=== PATIENT | female | born 1955 | race Caucasian/White ===

== ENCOUNTER 2018-05-30 10:33 | Emergency (ER) | payer OTHER ==
[~2018-05-30] VITALS: Ht 170.2 cm; Wt 60.8 kg
[2018-05-30 10:38] VITALS: BP 120/71
[2018-05-30 11:30] LABS: BASOPHILS % (AUTO) 0.5 % (0.0-2.0); EOSINOPHILS # (AUTO) 0.1 K/uL (0-0.4); EOSINOPHILS % (AUTO) 2.8 % (0.0-4.0); HEMATOCRIT 37.2 % (36-48); HEMOGLOBIN 12.3 g/dL (12.0-16.0); LYMPHOCYTES # (AUTO) 1.8 K/uL (2.5-16.5); LYMPHOCYTES % (AUTO) 38.8 % (20.5-51.1); MEAN CORPUSCULAR HEMOGLOBIN 32 pg (27-31); MEAN CORPUSCULAR HGB CONC 33 g/dL (33-37); MEAN CORPUSCULAR VOLUME 95.8 fL (80-94); MONOCYTES # (AUTO) 0.3 K/uL (0.8-1.0); MONOCYTES % (AUTO) 7.3 % (1.7-9.3); NEUTROPHILS # (AUTO) 2.3 K/uL (1.8-7.7); NEUTROPHILS % (AUTO) 50.6 % (42.2-75.2); PLATELET COUNT (AUTO) 211 K/uL (140-450); RED BLOOD CELL COUNT(AUTO) 3.88 MIL/uL (4.20-5.40); RED CELL DISTRIBUTION WIDTH 12.5 % (11.6-13.7); WHITE BLOOD COUNT (AUTO) 4.5 K/uL (4.8-10.8)
[2018-05-30 11:37] LABS: ANION GAP 9.2 (8-16); CARBON DIOXIDE 32.1 mmol/L (21-32); POTASSIUM 4.3 mmol/L (3.5-5.1)
[2018-05-30 11:45] LABS: ALBUMIN 3.7 g/dL (3.4-5.0); TOTAL BILIRUBIN 0.4 mg/dL (0.0-1.0)
[2018-05-30 12:15] VITALS: BP 119/80
== END 2018-05-30 12:15 | disposition home or self-care (01) ==
LOC: MED 10:33
DX: R07.9 Chest pain, unspecified (principal); A69.20 Lyme disease, unspecified; Z88.8 Allergy status to other drugs, medicaments and biological substances
CPT/HCPCS: 36415; 80053; 84484; 85025; 93005; 99284

== ENCOUNTER 2019-05-23 17:58 | Emergency (ER) | payer SELFPAY ==
[~2019-05-23] VITALS: Ht 167.6 cm; Wt 59.0 kg
--- NOTE | 2019-05-23 18:06 | NUR ---
Pt taken to bed 11.
[2019-05-23 18:09] VITALS: BP 112/70
--- NOTE | 2019-05-23 18:21 | NUR ---
64 Y/O F C/O KIDNEY AND BLADDER AND PAIN THAT STARTED X2 DAYS AGO. PT STATES SHE HAD AN ANTIBIOTIC AT HOME SHE TOOK TODAY. PT DENIES N/V/FEVER. PT GAVE UA SAMPLE, WILL SEND TO LAB. ALLERGIES: CORTISONE
--- NOTE | 2019-05-23 18:36 | NUR ---
LAB AT BEDSIDE DRAWING ORDERED LAB WORK.
--- NOTE | 2019-05-23 18:36 | NUR ---
MD AT BEDSIDE EXAMING PATIENT.
--- NOTE | 2019-05-23 18:39 | NUR ---
PT LEFT FOR CT BY WHEELCHAIR
[2019-05-23 18:46] LABS: BASOPHILS % (AUTO) 0.5 % (0.0-2.0); EOSINOPHILS # (AUTO) 0.1 K/uL (0-0.4); EOSINOPHILS % (AUTO) 1.2 % (0.0-4.0); HEMATOCRIT 39.3 % (36-48); HEMOGLOBIN 13.2 g/dL (12.0-16.0); LYMPHOCYTES # (AUTO) 2.3 K/uL (2.5-16.5); LYMPHOCYTES % (AUTO) 42.9 % (20.5-51.1); MEAN CORPUSCULAR HEMOGLOBIN 32 pg (27-31); MEAN CORPUSCULAR HGB CONC 34 g/dL (33-37); MEAN CORPUSCULAR VOLUME 96.4 fL (80-94); MONOCYTES # (AUTO) 0.3 K/uL (0.8-1.0); MONOCYTES % (AUTO) 5.7 % (1.7-9.3); NEUTROPHILS # (AUTO) 2.6 K/uL (1.8-7.7); NEUTROPHILS % (AUTO) 49.7 % (42.2-75.2); PLATELET COUNT (AUTO) 246 K/uL (140-450); RED BLOOD CELL COUNT(AUTO) 4.07 MIL/uL (4.20-5.40); RED CELL DISTRIBUTION WIDTH 12.8 % (11.6-13.7); WHITE BLOOD COUNT (AUTO) 5.3 K/uL (4.8-10.8)
[2019-05-23 18:47] LABS: APPEARANCE,URINE CLEAR (CLEAR); BILIRUBIN,URINE NEGATIVE (NEGATIVE); BLOOD, URINE NEGATIVE (NEGATIVE); COLOR,URINE YELLOW (YELLOW); LEUKOCYTE ESTERASE ,URINE 1+ (NEGATIVE); NITRITE, URINE NEGATIVE (NEGATIVE); UGLUCOSE NEGATIVE (NEGATIVE)
--- NOTE | 2019-05-23 18:50 | NUR ---
PT RETURNED FROM CT BY WHEELCHAIR.
--- NOTE | 2019-05-23 18:52 | NUR ---
PT INFORMED WE ARE WAITING FOR ORDERED TEST RESULTS TO COME BACK. PT RESTING COMFORTABLY. AT BEDSIDE.
--- NOTE | 2019-05-23 19:06 | NUR ---
PT RESTING COMFORTABLY, INFORMED TEST RESULTS ARE NOT BACK YET. AT BEDSIDE.
[2019-05-23 19:07] LABS: CARBON DIOXIDE 28.2 mmol/L (21-32); POTASSIUM 4.2 mmol/L (3.5-5.1)
--- NOTE | 2019-05-23 19:10 | NUR ---
RECEIVED REPORT FROM MARIA M TOMLINSON. WILL CONT. CARE AT THIS TIME.
--- NOTE | 2019-05-23 19:11 | NUR ---
REPORT GIVEN TO MARIA M CASTELLANO FOR CHANGE OF SHIFT.
[2019-05-23 19:14] LABS: ALBUMIN 4.2 g/dL (3.4-5.0); TOTAL BILIRUBIN 0.3 mg/dL (0.0-1.0)
[2019-05-23 19:28] LABS: RBC,URINE 0-5 /HPF (0-5); WBC,URINE 16-25 (MOD) /HPF (0-5)
[2019-05-23] MEDS ORDERED: KETOROLAC 60 MG/2 ML VIAL IM ONE (19:55)
[2019-05-23] MEDS ORDERED: cefTRIAXone 1,000 MG VIAL ONE (19:59)
[2019-05-23 21:10] VITALS: BP 112/70
--- NOTE | 2019-05-23 21:10 | NUR ---
Patient discharged with v/s stable. Written and verbal after care instructions given and explained. Patient alert, oriented and verbalized understanding of instructions. Ambulatory with steady gait. All questions addressed prior to discharge. ID band removed. Patient advised to follow up with PMD. Rx of NORCO, AND ZOFRAN given. Patient educated on indication of medication including possible reaction and side effects. Opportunity to ask questions provided and answered.
== END 2019-05-23 21:10 | disposition home or self-care (01) ==
LOC: MED 17:58
DX: N39.0 Urinary tract infection, site not specified (principal); E07.9 Disorder of thyroid, unspecified; Z90.49 Acquired absence of other specified parts of digestive tract; Z88.8 Allergy status to other drugs, medicaments and biological substances
CPT/HCPCS: 36415; 74176; 80053; 81001; 84702; 85025; 87086; 96365; 96372; 99284; J0696; J1885